=== PATIENT | female | born 1945 | race Caucasian/White ===

== ENCOUNTER → 2018-05-28 | Outpatient (CLI) | payer MEDICARE ==
[~2018-05-28] MED LIST: ALEN70TA42 PO; ASPI-1441 PO; ASPI81TA94 PO; CALC-762 PO; CALC-852 PO; CLO75 PO; LEV88 PO; LEVO88TA43 PO; MULT-820 PO; OMEG-11 PO; OMEG-96 PO; OMEP-218 PO; RAN150 PO; RANI150C17 PO; SIMV-42 PO; SIMV-49 PO
--- NOTE | 2018-05-29 10:07 | RADIOLOGY IMAGING REPORT ---
FACILITY: [facility] [place] PATIENT NAME: HARSHAL HARPER : [id number] MR: [id number] V: [id number] EXAM DATE: ORDERING PHYSICIAN: TOMY CONCEPCION TECHNOLOGIST: Jasmin Campbell PROCEDURE:BILATERAL DIGITAL SCREENING MAMMOGRAM WITH CAD ASSISTED INTERPRETATION & 3D TOMOSYNTHESIS COMPARISON:Prior mammogram 06/10/17, 05/29/16, 06/23/15. INDICATIONS:screening FINDINGS: Breast parenchyma is heterogeneously dense. There is stable architectural distortion in the superior Left breast from previous surgical excision. No new mammographic findings concerning for malignancy. DIAGNOSTIC CATEGORY 2--BENIGN FINDING. RECOMMENDATIONS: ROUTINE MAMMOGRAM AND CLINICAL EVALUATION IN 1 YR. IMPRESSION: BIRADS 2: Benign finding. Dictated by: Mitchell Mckenzie on 05/29/2018 at 8:49 Transcribed by: GRACIELA on 05/29/2018 at 9:31 Approved by: Mitchell Mckenzie on 05/29/2018 at 10:05 [facility]
== END ==
LOC: MAMO 02:22
PROVIDERS: ATTEND Internal Medicine
DX: Z12.31 Encounter for screening mammogram for malignant neoplasm of breast (principal); Z80.3 Family history of malignant neoplasm of breast
CPT/HCPCS: 77063; 77067

== ENCOUNTER → 2018-11-04 | Outpatient (CLI) | payer MEDICARE ==
--- NOTE | 2018-11-04 15:40 | EKG ---
[facility] PATIENT NAME: HARSHAL HARPER : [id number] MR: [id number] V: [id number] EXAM DATE: ORDERING PHYSICIAN: LORRI VAZQUEZ TECHNOLOGIST: Test Reason : Pre-op Blood Pressure : / mmHG Vent. Rate : 083 BPM Atrial Rate : 083 BPM P-R Int : 178 ms QRS Dur : 074 ms QT Int : 378 ms P-R-T Axes : 066 052 051 degrees QTc Int : 444 ms Normal sinus rhythm Possible Left atrial enlargement Borderline ECG No previous ECGs available Confirmed by BREE REYES ([id number]) on 11/05/2018 6:38:17 AM Referred By: Confirmed By:BREE REYES
== END ==
LOC: RESP 13:41
PROVIDERS: ATTEND Anesthesiology
DX: Z01.810 Encounter for preprocedural cardiovascular examination (principal); M19.041 Primary osteoarthritis, right hand; R94.31 Abnormal electrocardiogram [ECG] [EKG]
CPT/HCPCS: 93005

== ENCOUNTER → 2018-11-13 | Outpatient (CLI) | payer MEDICARE | LOC: US 02:23 | PROVIDERS: ATTEND Nurse Practitioner Family | DX: I51.7 Cardiomegaly (principal) | CPT/HCPCS: 93306 ==